=== PATIENT | male | born 1950 | race Caucasian/White ===

== ENCOUNTER 2018-04-14 16:55 | Observation (INO) | payer OTHER ==
[2018-04-14] MEDS ORDERED: NS 1,000 ML IV ONE (17:02)
--- NOTE | 2018-04-14 17:05 | EDPHY ---
HPI/HX/ROS/PE/MDM Narrative: CHIEF COMPLAINT: Near-syncopal after triathlon HPI: The patient is a 67 y/o male arriving via EMS for evaluation of a near- syncopal event 10-15 minutes after completing a / iron triathlon this afternoon. He says during the triathlon "I knew I was running low on energy," but denies any other abnormal symptoms. Shortly after completing the race he felt quite poor and exhausted and sat down. He then "lied there because I knew I couldn't get up" and reports "my heart rate was going crazy" over 100 when it would normally be around 50. He had some intermittent associated nausea. He denies ever losing consciousness or falling. No chest pain at any point. First aid tent responders administered nitro and then performed an EKG that showed some ST changes. He denies any clear difference after the nitro. He's began feeling "like I'm on the mend" though he still feels too weak to walk. He denies any diagnosed cardiac disease or other medical history. He reports some limited prior cardiac work up in the last year including an EKG and CT that were normal. REVIEW OF SYSTEMS: A comprehensive 10 system review of systems is otherwise negative aside from elements mentioned in the history of present illness. PMH: Denies SOCIAL HISTORY: From [place]. Retired. PHYSICAL EXAM: General:Patient is alert, in no acute distress. ENT:Eyes are normal to inspection. ENT inspection normal. Neck: Normal inspection. Full range of motion. Respiratory:No respiratory distress. Breath sounds normal bilaterally. Cardiovascular: Regular rate and rhythm. Strong peripheral pulses. Normal cap refill. Abdomen:The abdomen is nontender to palpation. There are no peritoneal signs. Back: Normal to inspection. No tenderness to palpation. Skin: Normal color. No rash. Warm and dry. Extremities: Normal appearance. Full range of motion. Neuro: Oriented x3. Normal motor function. Normal sensory function. ED Course: This is a normally healthy 67 y/o male who just completed a triathlon and presents after a near-syncopal episode 10-15 minutes after completing the race. Exam is unremarkable. Plan for IV, labs, UA, EKG. The 12 lead EKG was interpreted by myself. Sinus mechanism. isolated 2mm elevation V2, abnormal T waves V3. See hard copy and/or "tracemaster" electronic copy for interpretation. Serial troponins are increasing. Repeat EKG continues to have changes in V2 and V3. Plan for admission. Reassessed patient. He confirms he has never had chest pain. Spoke with hospitalist service. Dr. Hart accepts admission. Reassessed patient and discussed recommendations. He agrees to admission. MDM: This patient presents with near syncopal episode after finishing triathalon, with ECG changes and rising but still normal troponin. As such, I think he requires admission for observation and serial troponins. I see no signs of STEMI, pericarditis, anemia, hyponatremia or shock. - Data Points Laboratory Results: Laboratory Results 04/14/18 17:09 04/14/18 17:09 04/14/18 04/14/18 04/14/18 19:17 19:05 17:43 WBC RBC Hgb Hct MCV MCH MCHC RDW Plt Count MPV Neut % (Auto) Lymph % (Auto) [place] % (Auto) Eos % (Auto) Baso % (Auto) Nucleat RBC Rel Count Absolute Neuts (auto) Absolute Lymphs (auto) Absolute Monos (auto) Absolute Eos (auto) Absolute Basos (auto) Absolute Nucleated RBC Immature Gran % Immature Gran # Sodium Potassium Chloride Carbon Dioxide Anion Gap BUN Creatinine Estimated GFR Glucose Calcium POC Troponin I 0.05 ng/mL ng/mL 0.00 ng/mL ng/mL (0.00-0.08) (0.00-0.08) Urine Color COLORLESS Urine Appearance CLEAR Urine pH 6.0 (5.0-7.5) Ur Specific [place] 1.002 (1.002-1.030) Urine Protein NEGATIVE (NEGATIVE) Urine Ketones TRACE H (NEGATIVE) Urine Blood 1+ H (NEGATIVE) Urine Nitrate NEGATIVE (NEGATIVE) Urine Bilirubin NEGATIVE (NEGATIVE) Urine Urobilinogen NEGATIVE EU EU (0.2-1.0) Ur Leukocyte Esterase TRACE H (NEGATIVE) Urine RBC 1-3 /hpf /hpf (0-3) Urine WBC 3-5 /hpf H /hpf (0-3) Ur Epithelial Cells NONE SEEN /lpf /lpf (NONE-1+) Urine Bacteria 1+ /hpf H /hpf (NONE SEEN) Urine Mucus TRACE /lpf /lpf (NONE-1+) Urine Glucose NEGATIVE (NEGATIVE) 04/14/18 04/14/18 17:09 17:09 WBC 16.09 10^3/uL H 10^3/uL (3.80-9.50) RBC 4.02 10^6/uL L 10^6/uL (4.40-6.38) Hgb 13.8 g/dL g/dL (13.7-17.5) Hct 37.6 % L % (40.0-51.0) MCV 93.5 fL fL (81.5-99.8) MCH 34.3 pg H pg (27.9-34.1) MCHC 36.7 g/dL g/dL (32.4-36.7) RDW 11.5 % % (11.5-15.2) Plt Count 253 10^3/uL 10^3/uL (150-400) MPV 11.6 fL fL (8.7-11.7) Neut % (Auto) 83.5 % H % (39.3-74.2) Lymph % (Auto) 8.9 % L % (15.0-45.0) [place] % (Auto) 6.5 % % (4.5-13.0) Eos % (Auto) 0.1 % L % (0.6-7.6) Baso % (Auto) 0.6 % % (0.3-1.7) Nucleat RBC Rel Count 0.0 % % (0.0-0.2) Absolute Neuts (auto) 13.44 10^3/uL H 10^3/uL (1.70-6.50) Absolute Lymphs (auto) 1.43 10^3/uL 10^3/uL (1.00-3.00) Absolute Monos (auto) 1.04 10^3/uL H 10^3/uL (0.30-0.80) Absolute Eos (auto) 0.02 10^3/uL L 10^3/uL (0.03-0.40) Absolute Basos (auto) 0.09 10^3/uL 10^3/uL (0.02-0.10) Absolute Nucleated RBC 0.00 10^3/uL 10^3/uL (0-0.01) Immature Gran % 0.4 % % (0.0-1.1) Immature Gran # 0.07 10^3/uL 10^3/uL (0.00-0.10) Sodium 139 mEq/L mEq/L (135-145) Potassium 4.1 mEq/L mEq/L (3.3-5.0) Chloride 107 mEq/L mEq/L (97-110) Carbon Dioxide 17 mEq/l L mEq/l (22-31) Anion Gap 15 mEq/L mEq/L (8-16) BUN 25 mg/dL H mg/dL (7-23) Creatinine 1.1 mg/dL mg/dL (0.7-1.3) Estimated GFR > 60 Glucose 113 mg/dL H mg/dL (70-100) Calcium 9.6 mg/dL mg/dL (8.5-10.4) POC Troponin I Urine Color Urine Appearance Urine pH Ur Specific [place] Urine Protein Urine Ketones Urine Blood Urine Nitrate Urine Bilirubin Urine Urobilinogen Ur Leukocyte Esterase Urine RBC Urine WBC Ur Epithelial Cells Urine Bacteria Urine Mucus Urine Glucose Medications Given: Discontinued Medications Sodium Chloride (Ns) 1,000 mls @ 0 mls/hr IV EDNOW ONE; Wide Open PRN Reason: Protocol Stop: 04/14/18 17:03 Last Admin: 04/14/18 17:14 Dose: 1,000 mls Point of Care Test Results: Chemistry 04/14/18 04/14/18 19:17 17:43 POC Troponin I 0.05 ng/mL ng/mL 0.00 ng/mL ng/mL (0.00-0.08) (0.00-0.08) General Time Seen by Provider: 04/14/18 16:55 Initial Vital Signs: Initial Vital Signs Temperature (C) 36.1 C 04/14/18 17:03 Heart Rate 83 04/14/18 17:03 Respiratory Rate 16 04/14/18 17:03 Blood Pressure 138/76 H 04/14/18 17:03 O2 Sat (%) 99 04/14/18 17:03 O2 Delivery Mode Room Air Allergies/Adverse Reactions: Penicillins Allergy (Verified 04/14/18 20:30) Other-Enter Comments Home Medications: Medication Instructions Recorded NK [No Known Home Meds] 04/14/18 Departure - Departure Disposition: [facility] Clinical Impression: Near syncope Condition: Fair Report Scribed for: Kishore Rebolledo Report Scribed by: Odette Maurice Date of Report: 04/14/18 Time of Report: 17:16 Physician Review and Approval Statement: Portions of this note were transcribed by an ED scribe. I personally performed the history, physical exam, and medical decision making; and confirm the accuracy of the information in the transcribed note.
[2018-04-14 17:24] LABS: PLATELET COUNT 253 10^3/uL (150-400)
[2018-04-14] MEDS ORDERED: ACETAMINOPHEN 325 MG TAB PO PRN (20:39)
[2018-04-14] MEDS ORDERED: ONDANSETRON 4 MG/2 ML VIAL IVP PRN (20:39)
[2018-04-14] MEDS ORDERED: ONDANSETRON DISINTEGRATING 4 MG TAB PO PRN (20:39)
[2018-04-14] MEDS ORDERED: NS 1,000 ML IV SCH (20:45)
--- NOTE | 2018-04-14 20:45 | PDGENHP ---
History and Physical - Chief Complaint Acute near syncope - History of Present Illness 67-year-old male presents with acute near syncope characterized as feeling exceptionally exhausted with associated generalized weakness, nausea, with onset of symptoms approximately 10-15 minutes after completing half iron man challenge on the day of presentation. He reports that onset of symptoms was somewhat progressive, and he had felt physically exhausted and "off" near the end of the race. Duration of his symptoms was approximately 15-20 minutes. He sought medical attention at the medical tent, they performed an EKG that they felt was abnormal, and they administered sublingual nitroglycerin. The patient reports no change in his symptoms with sublingual nitroglycerin. He does report that he checked his pulse and his heart rate was between 100 and 120, and this was associated with symptomatic tachypnea. The patient reports that he has been training for this half marathon and he has not experienced any of the aforementioned symptoms during his training. He does report that his peak training distance was approximately half of the distance completed today. History Information - Allergies/Home Medication List Allergies/Adverse Reactions: Penicillins Allergy (Verified 04/14/18 20:30) Other-Enter Comments Home Medications: NK [No Known Home Meds] 04/14/18 [Last Taken Unknown] I have personally reviewed and updated: family history, medical history, social history, surgical history - Past Medical History Additional medical history: Approximately 1 year ago the patient experienced a 5 week URI which resulted in significant anxiety as well as a presentation to [facility] where he underwent echo, stress test, CT, and was eventually prescribed sertraline, which the patient has subsequently weaned off of - Surgical History Additional surgical history: Tonsillectomy - Family History Additional family history: Father with heart disease beginning around age 65, grandfather with atrial fibrillation - Social History Smoking Status: Never smoked Alcohol Use: Rarely Drug Use: None Additional social history: Patient is retired, he is physically active and does not experience chest pain with exercise Review of Systems Review of Systems: ROS: 10pt was reviewed & negative except for what was stated in HPI & below Constitutional: Reports: weakness Cardiac: Reports: other (Tachycardia) Respiratory: Reports: other (Tachypnea) Gastrointestinal: Reports: nausea Physical Exam Physical Exam: Temp Pulse Resp BP Pulse Ox 36.1 C 72 18 147/81 H 98 04/14/18 17:03 04/14/18 20:14 04/14/18 20:14 04/14/18 20:14 04/14/18 20:14 Constitutional: no apparent distress, appears nourished, not in pain, other ( Physically fit appearing male) Eyes: PERRL, anicteric sclera, EOMI Ears, Nose, Mouth, Throat: moist mucous membranes, hearing normal, ears appear normal, no oral mucosal ulcers Cardiovascular: no murmur, rub, or gallop, other (Occasional ectopic beat), No irregularly irregular, No tachycardia, No edema Respiratory: no respiratory distress, no rales or rhonchi, clear to auscultation Gastrointestinal: normoactive bowel sounds, soft, non-tender abdomen, no palpable masses Skin: warm, abrasion (Mild abrasions bilateral lower extremities right above the knees) Neurologic: AAOx3, sensation intact bilaterally, No weakness (Motor strength 5/ 5 bilateral upper and lower extremities) Psychiatric: interacting appropriately, not anxious, not encephalopathic, thought process linear Lab Data & Imaging Review 04/14/18 17:09 04/14/18 17:09 WBC 16.09 10^3/uL (3.80-9.50) H 04/14/18 17:09 RBC 4.02 10^6/uL (4.40-6.38) L 04/14/18 17:09 Hgb 13.8 g/dL (13.7-17.5) 04/14/18 17:09 Hct 37.6 % (40.0-51.0) L 04/14/18 17:09 MCV 93.5 fL (81.5-99.8) 04/14/18 17:09 MCH 34.3 pg (27.9-34.1) H 04/14/18 17:09 MCHC 36.7 g/dL (32.4-36.7) 04/14/18 17:09 RDW 11.5 % (11.5-15.2) 04/14/18 17:09 Plt Count 253 10^3/uL (150-400) 04/14/18 17:09 MPV 11.6 fL (8.7-11.7) 04/14/18 17:09 Neut % (Auto) 83.5 % (39.3-74.2) H 04/14/18 17:09 Lymph % (Auto) 8.9 % (15.0-45.0) L 04/14/18 17:09 [place] % (Auto) 6.5 % (4.5-13.0) 04/14/18 17:09 Eos % (Auto) 0.1 % (0.6-7.6) L 04/14/18 17:09 Baso % (Auto) 0.6 % (0.3-1.7) 04/14/18 17:09 Nucleat RBC Rel Count 0.0 % (0.0-0.2) 04/14/18 17:09 Absolute Neuts (auto) 13.44 10^3/uL (1.70-6.50) H 04/14/18 17:09 Absolute Lymphs (auto) 1.43 10^3/uL (1.00-3.00) 04/14/18 17:09 Absolute Monos (auto) 1.04 10^3/uL (0.30-0.80) H 04/14/18 17:09 Absolute Eos (auto) 0.02 10^3/uL (0.03-0.40) L 04/14/18 17:09 Absolute Basos (auto) 0.09 10^3/uL (0.02-0.10) 04/14/18 17:09 Absolute Nucleated RBC 0.00 10^3/uL (0-0.01) 04/14/18 17:09 Immature Gran % 0.4 % (0.0-1.1) 04/14/18 17:09 Immature Gran # 0.07 10^3/uL (0.00-0.10) 04/14/18 17:09 Sodium 139 mEq/L (135-145) 04/14/18 17:09 Potassium 4.1 mEq/L (3.3-5.0) 04/14/18 17:09 Chloride 107 mEq/L (97-110) 04/14/18 17:09 Carbon Dioxide 17 mEq/l (22-31) L 04/14/18 17:09 Anion Gap 15 mEq/L (8-16) 04/14/18 17:09 BUN 25 mg/dL (7-23) H 04/14/18 17:09 Creatinine 1.1 mg/dL (0.7-1.3) 04/14/18 17:09 Estimated GFR > 60 04/14/18 17:09 Glucose 113 mg/dL (70-100) H 04/14/18 17:09 Calcium 9.6 mg/dL (8.5-10.4) 04/14/18 17:09 POC Troponin I 0.05 ng/mL (0.00-0.08) 04/14/18 19:17 Urine Color COLORLESS 04/14/18 19:05 Urine Appearance CLEAR 04/14/18 19:05 Urine pH 6.0 (5.0-7.5) 04/14/18 19:05 Ur Specific [place] 1.002 (1.002-1.030) 04/14/18 19:05 Urine Protein NEGATIVE (NEGATIVE) 04/14/18 19:05 Urine Ketones TRACE (NEGATIVE) H 04/14/18 19:05 Urine Blood 1+ (NEGATIVE) H 04/14/18 19:05 Urine Nitrate NEGATIVE (NEGATIVE) 04/14/18 19:05 Urine Bilirubin NEGATIVE (NEGATIVE) 04/14/18 19:05 Urine Urobilinogen NEGATIVE EU (0.2-1.0) 04/14/18 19:05 Ur Leukocyte Esterase TRACE (NEGATIVE) H 04/14/18 19:05 Urine RBC 1-3 /hpf (0-3) 04/14/18 19:05 Urine WBC 3-5 /hpf (0-3) H 04/14/18 19:05 Ur Epithelial Cells NONE SEEN /lpf (NONE-1+) 04/14/18 19:05 Urine Bacteria 1+ /hpf (NONE SEEN) H 04/14/18 19:05 Urine Mucus TRACE /lpf (NONE-1+) 04/14/18 19:05 Urine Glucose NEGATIVE (NEGATIVE) 04/14/18 19:05 Visualized and Interpreted EKG results: Yes EKG Interpretation: Positive for: other (Normal sinus rhythm with intermittent PACs, ST-elevation isolated in V2) Assessment & Plan Assessment: 67-year-old male presents with acute near syncope in the setting of a half iron man challenge Plan: 1. Near syncope. Acute, new problem this provider, further workup indicated. Most likely secondary to physical exertion and bilaterally stress -that said, the patient does have isolated ST elevation in lead V2 and a marginal increase in troponin level -discussed with Dr. Kishore Rebolledo and Dr. Ke Carter, we agreed to observe the patient on telemetry overnight to rule out atrial arrhythmias, cycle cardiac enzymes to rule out overt cardiac ischemia and obtain outside records from [facility] which include echo, EKG, stress test and hold off on additional cardiovascular testing during this episode of care if all of the above are unremarkable -if patient with acute recurrent discomfort overnight, repeat EKG and get troponin level immediately -check orthostatics in a.m. after receiving IV fluids 2. Leukocytosis. Most likely stress demargination the setting of physical endurance challenge, repeat in a.m. 3. Chronic anxiety. Currently stable Diet. Regular Prophylaxis. High risk given recent physical exertion, SCDs and Lovenox 40 Code. Full Disposition. Anticipated discharge is 04/15, pending further workup as outlined above.
[2018-04-15 00:20] LABS: CREATINE KINASE 901 IU/L (0-224)
[2018-04-15 07:38] LABS: PLATELET COUNT 230 10^3/uL (150-400)
[2018-04-15 08:07] VITALS: BP 130/82
[2018-04-15] MEDS ORDERED: ENOXAPARIN 40 MG/0.4 ML SYR SC SCH (09:00)
--- NOTE | 2018-04-19 21:07 | CPEKG ---
Test Reason : OPEN Blood Pressure : / mmHG Vent. Rate : 083 BPM Atrial Rate : 083 BPM P-R Int : 221 ms QRS Dur : 090 ms QT Int : 433 ms P-R-T Axes : 084 -57 075 degrees QTc Int : 509 ms Sinus rhythm Prolonged NM interval Left anterior fascicular block Anteroseptal infarct, old ST elevation, consider inferior injury Prolonged QT interval Confirmed by Kishore Rebolledo ([id number]) on 04/19/2018 9:07:29 PM Referred By: Confirmed By:Kishore Rebolledo
--- NOTE | 2018-04-19 21:08 | CPEKG ---
Test Reason : OPEN Blood Pressure : / mmHG Vent. Rate : 077 BPM Atrial Rate : 000 BPM P-R Int : 190 ms QRS Dur : 092 ms QT Int : 404 ms P-R-T Axes : 084 -51 065 degrees QTc Int : 458 ms Sinus rhythm Paired ventricular premature complexes Left anterior fascicular block Anteroseptal infarct, old Confirmed by Kishore Rebolledo ([id number]) on 04/19/2018 9:07:44 PM Referred By: Confirmed By:Kishore Rebolledo
--- NOTE | 2018-04-19 21:09 | CPEKG ---
Test Reason : OPEN Blood Pressure : / mmHG Vent. Rate : 077 BPM Atrial Rate : 077 BPM P-R Int : 224 ms QRS Dur : 091 ms QT Int : 449 ms P-R-T Axes : 082 -53 065 degrees QTc Int : 509 ms Sinus rhythm Atrial premature complex Prolonged NV interval Left anterior fascicular block Probable anteroseptal infarct, old ST elevation anterior Prolonged QT interval Confirmed by Kishore Rebolledo ([id number]) on 04/19/2018 9:08:27 PM Referred By: Confirmed By:Kishore Rebolledo
== END 2018-04-15 10:16 | disposition home or self-care (01) ==
LOC: F2W 22:27
PROVIDERS: ADMIT Internal Medicine; ATTEND Internal Medicine
DX: R55 Syncope and collapse (principal); E86.9 Volume depletion, unspecified; S80.211A Abrasion, right knee, initial encounter; S80.212A Abrasion, left knee, initial encounter; Z88.0 Allergy status to penicillin
CPT/HCPCS: 71046; 93005; 96360; 99285; G0378; J1650; 84484-PO